=== PATIENT | male | born 1970 | race Two or more races ===

== ENCOUNTER → 2018-12-24 | Outpatient (CLI) | payer OTHER ==
[~2018-12-24] MED LIST: GLUCOPHAGE XR750 MG PO; TOPROL XL200 MG PO
== END | disposition home or self-care (01) ==
LOC: RX STUDY 08:15
DX: R10.13 Epigastric pain (principal); K21.9 Gastro-esophageal reflux disease without esophagitis; R13.19 Other dysphagia